=== PATIENT | female | born 1985 | race Caucasian/White ===

== ENCOUNTER 2016-12-14 21:46 | Emergency (ER) | payer OTHER ==
[~2016-12-14] VITALS: Ht 162.6 cm; Wt 68.0 kg
[~2016-12-14 21:46] MED LIST: CARAFATE1 G PO; KEFLEX PO; LORTAB 10-3251 EACH PO; NO MEDICATIONS; PRILOSEC PO; VICODIN 5/1 TAB 5/50 PO
== END 2016-12-15 00:57 | disposition home or self-care (01) ==
LOC: CED 21:46
DX: J02.9 Acute pharyngitis, unspecified (principal); F41.9 Anxiety disorder, unspecified; F17.210 Nicotine dependence, cigarettes, uncomplicated
CPT/HCPCS: 87651; 99283